=== PATIENT | female | born 1980 | race African-American/Black ===

== ENCOUNTER 2018-04-09 12:11 | Emergency (ER) | payer SELFPAY ==
[2018-04-09] MEDS ORDERED: Lidocaine 1% w/Epinephrine 1:100K 20 ML VIAL ONE (12:48)
== END 2018-04-09 13:20 | disposition home or self-care (01) ==
LOC: ERS 12:11
DX: L02.416 Cutaneous abscess of left lower limb (principal)
CPT/HCPCS: 10060; J2001

== ENCOUNTER 2018-07-17 16:13 | Emergency (ER) | payer SELFPAY | END 2018-07-17 17:07 | disposition home or self-care (01) | LOC: ERS 16:13 | DX: L02.212 Cutaneous abscess of back [any part, except buttock and flank] (principal); R49.0 Dysphonia | CPT/HCPCS: 99282 ==

== ENCOUNTER 2019-03-16 12:19 | Outpatient (CLI) | payer MEDICAID ==
--- NOTE | 2019-03-16 13:19 | ULT ---
TRANSABDOMINAL AND TRANSVAGINAL PELVIC ULTRASOUND WITH GRAYSCALE, COLOR-FLOW AND SPECTRAL DOPPLER AMBER GING: HISTORY: 38-year-old female with menorrhagia FINDINGS: The uterus measures 9.4 x 5.4 x 5.8 cm without focal mass or endometrial fluid. The endometrium measu res 4 mm in thickness. The right ovary measures 4.7 x 2.6 x 2.9 cm in the left ovary measures 2.4 x 1.4 x 1.6 cm. Flow is de monstrated to both ovaries. There is trace free fluid next to the uterus. There is a 4.7 x 3.2 x 2.9 cm right ovarian cyst. IMPRESSION: None right ovarian cyst measuring 4.7 x 3.2 x 2.9 cm. RECOMMENDATION: A follow-up exam is recommended in 6-8 weeks.
== END 2019-03-16 12:20 | disposition home or self-care (01) ==
LOC: ULT 12:19 → BICULT 12:20
PROVIDERS: ATTEND Advanced Practice Midwife
DX: N92.1 Excessive and frequent menstruation with irregular cycle (principal); N83.201 Unspecified ovarian cyst, right side
CPT/HCPCS: 76856

== ENCOUNTER 2019-04-25 17:38 | Emergency (ER) | payer MEDICAID | END 2019-04-25 18:44 | disposition home or self-care (01) | LOC: ERS 17:38 | DX: K02.9 Dental caries, unspecified (principal) | CPT/HCPCS: 99282 ==

== ENCOUNTER 2019-05-01 13:54 | Outpatient (CLI) | payer MEDICAID ==
--- NOTE | 2019-05-01 14:39 | ULT ---
US Pelvic Transvag W Doppler HISTORY: Right ovarian cyst COMPARISON: 03/16/2019 TECHNIQUE: Multiple grayscale and color Doppler images were obtained in a transabdominal and transvag inal pelvic ultrasound. Spectral analysis of the Doppler waveforms of the ovaries were performed. FINDINGS: CERVIX: Unremarkable UTERUS: Normal in size without focal abnormality. ENDOMETRIAL STRIPE: 5 mm. Mild free fluid is present. RIGHT OVARY: Normal flow, without focal mass. LEFT OVARY: Normal flow, without focal mass. IMPRESSION: No acute pelvic abnormality Resolution of prior right ovarian cyst
== END 2019-05-01 13:55 | disposition home or self-care (01) ==
LOC: BICULT 13:54
PROVIDERS: ATTEND Advanced Practice Midwife
DX: N83.201 Unspecified ovarian cyst, right side (principal)
CPT/HCPCS: 76856

== ENCOUNTER 2022-10-30 15:38 | Emergency (ER) | payer BC ==
[2022-10-30] MEDS ORDERED: Ondansetron PF 4 MG/2 ML Vial ONE (16:23)
[2022-10-30 16:39] LABS: #Eosinphils 0.1 thou/uL (0.0-0.7); #Lymphocytes 2.3 thou/uL (1.20-3.40); #Monocytes 0.5 thou/uL (0.11-0.59); #Neutrophils 8.3 thou/uL (1.40-6.50); %Basophils 0.2 % (0.0-1.0); %Eosinophils 0.6 % (0.0-10.0); %Lymphocytes 20.8 % (21.0-51.0); %Monocytes 4.2 % (0.0-10.0); %Neutrophils 74.3 % (42.0-75.0); Hemoglobin 12.7 g/dL (12.0-16.0); Mean Corpuscular HGB CONC 33.7 g/dL (32.0-36.0); Mean Corpuscular Hemoglobin 30.6 pg (27.0-31.0); Mean Platelet Volume 7.8 fL (7.4-10.4); Platelet Count 302 10x3/uL (130-400); RBC Distribution Width 12.6 % (11.5-14.5); Red Blood Cell (RBC) Count 4.16 mill/uL (4.20-5.40); White Blood Cell (WBC) Count 11.1 10x3/uL (4.8-10.8)
[2022-10-30] MEDS ORDERED: Promethazine HCl 25 MG in Sodium Chloride 0.9% 50 ML IVPB SCH (17:00)
[2022-10-30 17:02] LABS: ALT (SGPT) 14 U/L (8-55); AST (SGOT) 31 U/L (5-34); Albumin 4.8 g/dL (3.5-5.0); Alkaline Phosphatase 90 U/L (40-110); Anion Gap 19 mmol/L (10-20); BUN (Urea Nitrogen) 19 mg/dL (7.0-18.7); Bilirubin, Total 0.3 mg/dL (0.2-1.2); CK (CPK) 141 U/L (29-168); Calc. Creatinine Clearance 0 mL/min (70-130); Calcium 10.2 mg/dL (7.8-10.44); Carbon Dioxide 20 mmol/L (22-29); Chloride 104 mmol/L (98-107); Estimated GFR 85; Globulin 3.9 g/dL (2.4-3.5); Glucose 117 mg/dL (70-105); Lipase 72 U/L (8-78); Potassium 3.8 mmol/L (3.5-5.1); Protein, Total 8.7 g/dL (6.0-8.3); Sodium 139 mmol/L (136-145)
== END 2022-10-30 19:00 | disposition home or self-care (01) ==
LOC: ERS 15:38
DX: R11.10 Vomiting, unspecified (principal); R19.7 Diarrhea, unspecified; D72.829 Elevated white blood cell count, unspecified; I10 Essential (primary) hypertension
CPT/HCPCS: 80053; 82550; 83690; 84484; 85025; 93005; 96361; 96365; 96375; J2405; J2550